=== PATIENT | female | born 1950 | race African-American/Black ===

== ENCOUNTER 2017-06-03 01:07 | Emergency (ER) | payer MEDICARE, MEDICAID ==
[~2017-06-03] VITALS: Ht 162.6 cm; Wt 39.0 kg
[2017-06-03] MEDS ORDERED: ASPIRIN 81MG TABLET PO ONE (03:45)
[2017-06-03] MEDS ORDERED: NITROGLYCERIN OINT 1GM/INCH UDPKT TD ONE (03:45)
[2017-06-03 04:01] LABS: BASOPHILS % 0.4 % (0.0-2.0); EOSINOPHILS % 0.5 % (0.0-5.0); HEMATOCRIT. 28.4 % (36.0-48.0); HEMOGLOBIN. 9.2 g/dL (12.0-16.0); LYMPHOCYTES % 14.8 % (20.0-50.0); MEAN CORPUSCULAR VOLUME 105.6 fL (81.0-99.0); MEAN PLATELET VOLUME 8.6 fl (7.4-10.4); MONOCYTES % 6.4 % (2.0-8.0); NEUTROPHILS % 77.9 % (40.0-76.0); PLATELET 221 x1000/uL (130-400); RED BLOOD CELL COUNT 2.69 mill/uL (4.2-5.4); RED CELL DISTRIBUTION WIDTH 16.6 % (11.6-14.6)
[2017-06-03 04:17] LABS: INR 1.1; PROTHROMBIN TIME 11.1 sec (9.4-11.6)
[2017-06-03 04:36] LABS: CARBON DIOXIDE 13 mEq/L (21-32); CHLORIDE 119 mEq/L (98-107); ETHANOL BLOOD < 10 mg/dL; TROPONIN I 0.02 ng/mL (0.00-0.04)
[2017-06-03 05:30] VITALS: BP 148/71
== END 2017-06-03 06:26 | disposition home or self-care (01) ==
LOC: ER 01:07 → CANBEDREQ 06:34
DX: S39.012A Strain of muscle, fascia and tendon of lower back, initial encounter (principal); M79.672 Pain in left foot; M79.671 Pain in right foot; D64.9 Anemia, unspecified; R74.0 Nonspecific elevation of levels of transaminase and lactic acid dehydrogenase [LDH]; N19 Unspecified kidney failure; I10 Essential (primary) hypertension; M10.9 Gout, unspecified; F17.200 Nicotine dependence, unspecified, uncomplicated; F12.10 Cannabis abuse, uncomplicated; Z88.1 Allergy status to other antibiotic agents; X58.XXXA Exposure to other specified factors, initial encounter; Y93.89 Activity, other specified; Y92.89 Other specified places as the place of occurrence of the external cause; Y99.8 Other external cause status
CPT/HCPCS: 36415; 71010; 72100; 73630; 80053; 83605; 83880; 84484; 85025; 85610; 87040; 93005; 99285; G0482